=== PATIENT | female | born 1955 | race Caucasian/White ===

== ENCOUNTER 2018-06-09 14:56 | Emergency (ER) | payer BC ==
--- NOTE | 2018-06-09 15:45 | RAD ---
RIGHT HAND 3 VIEWS: Date: 06/09/18 HISTORY: Dog bite. COMPARISON: None. FINDINGS: Mild interphalangeal joint space narrowing throughout all the digits. No acute displaced fracture or malalignment. IMPRESSION: Degenerative changes. No acute fracture or malalignment. POS: [facility]
[2018-06-09] MEDS ORDERED: Bacitracin Zinc 1 Packet ONE (15:56)
== END 2018-06-09 16:00 | disposition home or self-care (01) ==
LOC: ERS 14:56
DX: S61.451A Open bite of right hand, initial encounter (principal); K21.9 Gastro-esophageal reflux disease without esophagitis; F17.210 Nicotine dependence, cigarettes, uncomplicated; W54.0XXA Bitten by dog, initial encounter
CPT/HCPCS: 99283

== ENCOUNTER 2018-11-11 10:04 | Emergency (ER) | payer BC ==
[~2018-11-11 10:04] MED LIST: ISOVUE-370 76%-LOCM 1 ML ONE
--- NOTE | 2018-11-11 10:25 | RAD ---
EXAM: Portable chest PROVIDED CLINICAL HISTORY: Shortness of breath COMPARISON: 10/04/2015 FINDINGS: Cardiac and mediastinal silhouette is within normal limits. No focal consolidation, pleural fluid or pneumothorax evident. IMPRESSION: No evidence for an acute cardiopulmonary process.
[2018-11-11] MEDS ORDERED: methylPREDNISolone Sod Succ/PF 125 MG/2 ML VIAL ONE (11:07)
[2018-11-11 11:10] LABS: #Basophils 0.1 thou/uL (0.0-0.2); #Eosinphils 0.3 thou/uL (0.0-0.7); #Lymphocytes 4.1 thou/uL (1.20-3.40); #Monocytes 0.5 thou/uL (0.11-0.59); #Neutrophils 4.3 thou/uL (1.40-6.50); %Basophils 1.3 % (0.0-1.0); %Eosinophils 2.8 % (0.0-10.0); %Lymphocytes 43.9 % (21.0-51.0); %Monocytes 5.4 % (0.0-10.0); %Neutrophils 46.6 % (42.0-75.0); Hemoglobin 13.7 g/dL (12.0-16.0); Mean Corpuscular HGB CONC 32.6 g/dL (32.0-36.0); Mean Corpuscular Hemoglobin 29.8 pg (27.0-31.0); Mean Corpuscular Volume 91.3 fL (78.0-98.0); Mean Platelet Volume 9.1 fL (7.4-10.4); Platelet Count 308 thou/uL (130-400); RBC Distribution Width 12.8 % (11.5-14.5); Red Blood Cell (RBC) Count 4.61 mill/uL (4.20-5.40); White Blood Cell (WBC) Count 9.3 thou/uL (4.8-10.8)
[2018-11-11 11:30] LABS: ALT (SGPT) 19 U/L (8-55); AST (SGOT) 19 U/L (5-34); Albumin 4.4 g/dL (3.4-4.8); Alkaline Phosphatase 55 U/L (40-150); Anion Gap 12 mmol/L (10-20); BUN (Urea Nitrogen) 21 mg/dL (9.8-20.1); Bilirubin, Total 0.4 mg/dL (0.2-1.2); Calc. Creatinine Clearance 0 mL/min (70-130); Calcium 9.5 mg/dL (7.8-10.44); Carbon Dioxide 25 mmol/L (23-31); Chloride 105 mmol/L (98-107); Estimated GFR-MDRD 58; Globulin 2.3 g/dL (2.4-3.5); Glucose 103 mg/dL (80-115); Potassium 4.4 mmol/L (3.5-5.1); Protein, Total 6.7 g/dL (6.0-8.3); Sodium 138 mmol/L (136-145)
[2018-11-11] MEDS ORDERED: cefTRIAXone\\ROCEPHIN 1 GM VIAL ONE (12:49)
--- NOTE | 2018-11-11 13:18 | CT ---
CTA THORAX UTILIZING IV CONTRAST WITH PE PROTOCOL AND 3D REFORMATTED IMAGING: Date: 11/11/18 INDICATION: History of chest tightness, wheezing, vomiting, and cough. COMPARISON: None. FINDINGS: No central or segmental pulmonary embolus is evident. No confluent air space opacity, pleural effusio n, or pneumothorax evident. There are calcified granulomas in the right lower lobe. There are scatter ed vascular calcifications involving the thoracic aorta. No enlarged lymph nodes are evident. Visualized upper abdomen demonstrates a small, 9 mm, exophytic cyst off the superior pole of the left kidney. Visualized adrenal gland demonstrates a small suspected adenoma involving the left adrenal g land. No acute osseous abnormality is evident. IMPRESSION: 1. No central or segmental pulmonary embolus. 2. No definite acute cardiopulmonary abnormality. 3. Left renal cyst. 4. Suspected left adrenal adenoma measuring 8.0 mm. POS: BH
== END 2018-11-11 14:20 | disposition home or self-care (01) ==
LOC: ERS 10:04
DX: J20.9 Acute bronchitis, unspecified (principal); I10 Essential (primary) hypertension; K21.9 Gastro-esophageal reflux disease without esophagitis; F17.210 Nicotine dependence, cigarettes, uncomplicated
CPT/HCPCS: 36415; 71045; 71275; 80053; 83880; 84484; 85025; 93005; 94640; 94760; 96361; 96365; 96375; J0696; J2930; J7620